=== PATIENT | male | born 1995 | race Hispanic/Latino ===

== ENCOUNTER 2019-11-14 16:57 | Emergency (ER) | payer MEDICAID, OTHER ==
[2019-11-14] MEDS ORDERED: LIDOCAINE HCL-MPF 1% 2ML VIAL ONE (17:22)
[2019-11-14] MEDS ORDERED: CEFTRIAXONE SODIUM 1 GM ONE (17:22)
[2019-11-14] MEDS ORDERED: ACETAMINOPHEN EXTRA STRENGTH 500 MG TABLET ONE (17:22)
[2019-11-14] MEDS ORDERED: DEXAMETHASONE SOD PHOSPHATE 10MG/ML 1ML VIAL ONE (17:22)
== END 2019-11-14 17:49 | disposition home or self-care (01) ==
LOC: EDH 16:57
DX: J02.9 Acute pharyngitis, unspecified (principal); Z72.0 Tobacco use
CPT/HCPCS: 96372 ×2; 99284; J0696; J1100; J3490